=== PATIENT | male | born 1965 | race African-American/Black ===

== ENCOUNTER 2020-10-05 15:32 | Emergency (ER) | payer SELFPAY ==
[~2020-10-05] VITALS: Ht 170.2 cm; Wt 86.2 kg
[2020-10-05 15:38] VITALS: BP 162/93
[2020-10-05] MEDS ORDERED: KETOROLAC 60 MG/2 ML VIAL IM ONE (16:10)
[2020-10-05 18:06] VITALS: BP 162/93
== END 2020-10-05 18:07 | disposition home or self-care (01) ==
LOC: MED 15:32
DX: S16.1XXA Strain of muscle, fascia and tendon at neck level, initial encounter (principal); S39.012A Strain of muscle, fascia and tendon of lower back, initial encounter; R03.0 Elevated blood-pressure reading, without diagnosis of hypertension; J45.909 Unspecified asthma, uncomplicated; V59.49XA Driver of pick-up truck or van injured in collision with other motor vehicles in traffic accident, initial encounter; Y93.89 Activity, other specified; Y92.89 Other specified places as the place of occurrence of the external cause; Y99.8 Other external cause status
CPT/HCPCS: 71250; 72125; 74176; 96372; 99285; J1885